=== PATIENT | female | born 1995 | race Caucasian/White ===

== ENCOUNTER 2018-10-24 05:02 | Emergency (ER) | payer OTHER ==
--- NOTE | 2018-10-24 05:28 | EDPHY ---
H & P Stated Complaint: upper L back pain, abd pain, nausea Time Seen by Provider: 10/24/18 05:28 HPI/ROS: HPI CHIEF COMPLAINT: Low back pain, nausea. HISTORY OF PRESENT ILLNESS: 23-year-old female, otherwise healthy without any significant medical history presents emergency room low back pain. Patient reports this woke from sleep but she has been having some low back pain and some mild upper back pain for the past 48 hr. She woke up with worsening pain tonight with associated nausea but no vomiting she states she tried to vomit was unable to do so. Also had some abdominal cramping. Her main area of pain is bilateral lower back CVA regions and a little bit higher than her CVA midthoracic paraspinal no midline thoracic spine pain. Patient denies any numbness or tingling, denies any chest pain or shortness of breath, denies cough , denies fever. She does state that she was recently in after, she did have diarrhea there she took 3 days of ciprofloxacin. She denies any urinary symptoms. Denies fever rigors. Pain woke her from sleep tonight got worse. Started having nausea abdominal cramping and this is what prompted her to come to the emergency room. Patient denies any trauma. Past Medical History: Denies Past Surgical History: Denies Social History: Denies drugs tobacco. Family History: Denies ROS REVIEW OF SYSTEMS: 10 Systems were reviewed and negative with the exception of the elements mentioned in the history of present illness. Exam Constitutional nontoxic triage nursing summary reviewed, vital signs reviewed , awake/alert. Eyes normal conjunctivae and sclera, EOMI, PERRLA. HENT normal inspection, atraumatic, moist mucus membranes, no epistaxis, neck supple/ no meningismus, no raccoon eyes. Respiratory clear to auscultation bilaterally, normal breath sounds, no respiratory distress, no wheezing. Cardiovascular rate normal, regular rhythm, no murmur, no edema, distal pulses normal. Gastrointestinal soft, non-tender, no rebound, no guarding, normal bowel sounds, no distension, no pulsatile mass. Genitourinary mild CVA tenderness bilaterally Back exam: Mild CVA tenderness bilaterally, no midline thoracic back pain paravertebral lower thoracic and upper CVA regions has some mild pain. No rash. No swelling, no trauma noted on exam. Musculoskeletal no midline vertebral tenderness, full range of motion, no calf swelling, no tenderness of extremities, no meningismus, good pulses, neurovascularly intact. Skin pink, warm, & dry, no rash, skin atraumatic. Neurologic awake, alert and oriented x 3, AAOx3, moves all 4 extremities equally, motor intact, sensory intact, CN II-XII intact, normal cerebellar, normal vision, normal speech. Psychiatric normal mood/affect. Heme/Lymph/Immune no lymphadenopathy. Differential diagnosis includes but is not limited to and in no particular order : Bowel obstruction, appendicitis, gallbladder disease, diverticulitis, colitis , enteritis, perforated viscus, gastritis, GERD, esophagitis, urinary tract infection, pyelonephritis, kidney stones Medical Decision Making: Plan for this patient IV establishment IV fluid bolus , IV Toradol for pain control, chest x-ray two view, urinalysis, basic blood work, and re-evaluate. Re-evaluation: PERC Negative. Chest x-ray two view negative for acute cardiopulmonary disease. Interpreted by myself. Blood work reviewed unremarkable Urinalysis reviewed unremarkable. 6:57 a.m. Re-evaluation patient resting comfortably in no acute distress. Denies chest pain or shortness of breath or pleuritic pain. She appears to have musculoskeletal back pain hurts worse when she goes to sit up or truncal axial movements. She declined the IV Toradol as the pain was getting much better. She has reproducible left paravertebral thoracic spine pain on exam. No pain when she breathes in Worse when she goes to sit up and move. Denies chest pain or shortness of breath or abdominal pain. She is comfortable going home. Her blood work and urinalysis have been reviewed Chest x-ray reviewed Return precautions discussed with her and her mom she is comfortable with this plan comfortable going home. However she understands return emergency room she develops any worsening pain or further symptoms. Source: Patient - Personal History LMP (Females 10-55): 8-14 Days Ago Current Tetanus/Diphtheria Vaccine: Yes - Medical/Surgical History Hx Asthma: No Hx Chronic Respiratory Disease: No Hx Diabetes: No Hx Cardiac Disease: No Hx Renal Disease: No Hx Cirrhosis: No Hx Alcoholism: No Hx HIV/AIDS: No Hx Splenectomy or Spleen Trauma: No Other PMH: denies - Social History Smoking Status: Never smoked Constitutional: Initial Vital Signs Temperature (C) 35.6 C L 10/24/18 05:03 Heart Rate 68 10/24/18 05:03 Respiratory Rate 20 10/24/18 05:03 Blood Pressure 91/69 L 10/24/18 05:03 O2 Sat (%) 98 10/24/18 05:03 O2 Delivery Mode Room Air Allergies/Adverse Reactions: benzocaine Allergy (Verified 10/24/18 05:06) Home Medications: Medication Instructions Recorded Ibuprofen [Motrin (*)] 800 mg PO Q6-8PRN #10 tab 10/24/18 Medical Decision Making - Data Points Laboratory Results: Laboratory Results 10/24/18 05:54 10/24/18 05:54 10/24/18 10/24/18 10/24/18 06:18 05:54 05:54 WBC RBC Hgb Hct MCV MCH MCHC RDW Plt Count MPV Neut % (Auto) Lymph % (Auto) [place] % (Auto) Eos % (Auto) Baso % (Auto) Nucleat RBC Rel Count Absolute Neuts (auto) Absolute Lymphs (auto) Absolute Monos (auto) Absolute Eos (auto) Absolute Basos (auto) Absolute Nucleated RBC Immature Gran % Immature Gran # Sodium 139 mEq/L mEq/L (135-145) Potassium 4.5 mEq/L mEq/L (3.5-5.2) Chloride 107 mEq/L mEq/L (97-110) Carbon Dioxide 24 mEq/l mEq/l (22-31) Anion Gap 8 mEq/L mEq/L (6-14) BUN 17 mg/dL mg/dL (7-23) Creatinine 0.7 mg/dL mg/dL (0.6-1.0) Estimated GFR > 60 Glucose 92 mg/dL mg/dL (70-100) Calcium 9.3 mg/dL mg/dL (8.5-10.4) Total Bilirubin 0.6 mg/dL mg/dL (0.1-1.4) Conjugated Bilirubin 0.4 mg/dL mg/dL (0.0-0.5) Unconjugated Bilirubin 0.2 mg/dL mg/dL (0.0-1.1) AST 32 IU/L IU/L (14-46) ALT 33 IU/L IU/L (9-52) Alkaline Phosphatase 62 IU/L IU/L (38-126) Total Protein 7.1 g/dL g/dL (6.3-8.2) Albumin 4.3 g/dL g/dL (3.5-5.0) Lipase 166 IU/L IU/L (23-300) Beta HCG, Qual NEGATIVE Urine Color YELLOW Urine Appearance HAZY Urine pH 6.0 (5.0-7.5) Ur Specific [place] 1.020 (1.002-1.030) Urine Protein NEGATIVE (NEGATIVE) Urine Ketones NEGATIVE (NEGATIVE) Urine Blood NEGATIVE (NEGATIVE) Urine Nitrate NEGATIVE (NEGATIVE) Urine Bilirubin NEGATIVE (NEGATIVE) Urine Urobilinogen NEGATIVE EU EU (0.2-1.0) Ur Leukocyte Esterase NEGATIVE (NEGATIVE) Urine Glucose NEGATIVE (NEGATIVE) 10/24/18 05:54 WBC 6.96 10^3/uL 10^3/uL (3.80-9.50) RBC 4.74 10^6/uL 10^6/uL (4.18-5.33) Hgb 15.0 g/dL g/dL (12.6-16.3) Hct 44.2 % % (38.0-47.0) MCV 93.2 fL fL (81.5-99.8) MCH 31.6 pg pg (27.9-34.1) MCHC 33.9 g/dL g/dL (32.4-36.7) RDW 12.8 % % (11.5-15.2) Plt Count 242 10^3/uL 10^3/uL (150-400) MPV 11.0 fL fL (8.7-11.7) Neut % (Auto) 50.5 % % (39.3-74.2) Lymph % (Auto) 37.5 % % (15.0-45.0) [place] % (Auto) 6.9 % % (4.5-13.0) Eos % (Auto) 4.2 % % (0.6-7.6) Baso % (Auto) 0.6 % % (0.3-1.7) Nucleat RBC Rel Count 0.0 % % (0.0-0.2) Absolute Neuts (auto) 3.52 10^3/uL 10^3/uL (1.70-6.50) Absolute Lymphs (auto) 2.61 10^3/uL 10^3/uL (1.00-3.00) Absolute Monos (auto) 0.48 10^3/uL 10^3/uL (0.30-0.80) Absolute Eos (auto) 0.29 10^3/uL 10^3/uL (0.03-0.40) Absolute Basos (auto) 0.04 10^3/uL 10^3/uL (0.02-0.10) Absolute Nucleated RBC 0.00 10^3/uL 10^3/uL (0-0.01) Immature Gran % 0.3 % % (0.0-1.1) Immature Gran # 0.02 10^3/uL 10^3/uL (0.00-0.10) Sodium Potassium Chloride Carbon Dioxide Anion Gap BUN Creatinine Estimated GFR Glucose Calcium Total Bilirubin Conjugated Bilirubin Unconjugated Bilirubin AST ALT Alkaline Phosphatase Total Protein Albumin Lipase Beta HCG, Qual Urine Color Urine Appearance Urine pH Ur Specific [place] Urine Protein Urine Ketones Urine Blood Urine Nitrate Urine Bilirubin Urine Urobilinogen Ur Leukocyte Esterase Urine Glucose Medications Given: Discontinued Medications Sodium Chloride (Ns) 1,000 mls @ 0 mls/hr IV EDNOW ONE; Wide Open PRN Reason: Protocol Stop: 10/24/18 05:35 Last Admin: 10/24/18 05:58 Dose: 1,000 mls Ketorolac Tromethamine (Toradol) 15 mg IVP EDNOW ONE Stop: 10/24/18 05:36 Last Admin: 10/24/18 06:59 Dose: 15 mg Departure - Departure Disposition: Home, Routine, Self-Care Clinical Impression: Back pain Qualifiers: Back pain location: thoracic back pain Chronicity: acute Back pain laterality: left Qualified Code(s): M54.6 - Pain in thoracic spine Condition: Good Instructions: Back Pain (ED) Additional Instructions: 1. Rest. 2. Anti-inflammatory pain medicine 3. Return if worsening symptoms worsening pain questions or concerns. Referrals: NONE *PRIMARY CARE P,. [Primary Care Provider] - As per Instructions Prescriptions: Ibuprofen [Motrin (*)] 800 mg PO Q6-8PRN #10 tab
[2018-10-24] MEDS ORDERED: NS 1,000 ML IV ONE (05:34)
[2018-10-24] MEDS ORDERED: KETOROLAC 15 MG/1 ML SDV IVP ONE (05:35)
[2018-10-24 06:02] LABS: PLATELET COUNT 242 10^3/uL (150-400)
[2018-10-24 07:30] VITALS: BP 97/72
== END 2018-10-24 07:28 | disposition home or self-care (01) ==
DX: M54.6 Pain in thoracic spine (principal); E86.9 Volume depletion, unspecified
CPT/HCPCS: 96374; J1885